=== PATIENT | female | born 1975 | race Caucasian/White ===

== ENCOUNTER 2020-11-22 13:55 | Emergency (ER) | payer OTHER ==
[~2020-11-22] VITALS: Ht 165.1 cm; Wt 66.7 kg
== END 2020-11-22 20:20 | disposition home or self-care (01) ==
LOC: ER 13:55
DX: F41.8 Other specified anxiety disorders (principal); R07.89 Other chest pain

== ENCOUNTER 2024-04-27 15:26 | Outpatient (CLI) | payer OTHER | END 2024-04-27 15:30 | disposition home or self-care (01) | LOC: SONOGRAMA 15:26 | PROVIDERS: ATTEND Pathology Anatomic Pathology & Clinical Pathology | DX: N63.10 Unspecified lump in the right breast, unspecified quadrant (principal); D24.1 Benign neoplasm of right breast ==